=== PATIENT | male | born 1985 | race Hispanic/Latino ===

== ENCOUNTER 2022-11-06 03:59 | Emergency (ER) | payer OTHER, SELFPAY ==
--- NOTE | ~2022-11-06 | XR_ITS ---
Clinical Indication: Left-sided rib pain AP and lateral views of the chest: Comparison: None Findings: The lungs are clear, without evidence of focal consolidation or pleural effusion. Cardiome diastinal silhouette is within normal limits. Multiple bone islands noted the proximal humeri. Impression: Clear lungs. Multiple bone islands at the proximal humeri. Osteopoikilosis is a consideration. Reviewed, dictated and finalized at location . Impression: Clear lungs. Multiple bone islands at the proximal humeri. Osteopoikilosis is a consideratio n.
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
--- NOTE | ~2022-11-06 | XR_ITS ---
Left ankle Technique: AP, oblique, and lateral views were obtained. Clinical History: Swelling Findings: No acute fracture or dislocation is seen. Several probable bone islands noted. Osseous alig nment is anatomic. Ankle mortise and other visualized joint spaces are preserved. Soft tissues are o therwise unremarkable. Impression: No significant abnormality identified. Reviewed, dictated and finalized at location . Impression: No significant abnormality identified.
--- NOTE | ~2022-11-06 | CT_ITS ---
Noncontrast CT scan of the cervical spine Technique: Multiple contiguous axial [address] images of the cervical spine were obtained and rec onstructed in 2D sagittal and coronal planes on the acquisition scanner. Dose reduction technique was used on this scan by utilizing automated exposure control, adjustment of the mA and/or kV according to patient size. The dose-length product (DLP) was 386.61 mGy-cm. Clinical History: Pain Findings: No fractures or dislocations. Unremarkable visualized bony structures. The intervertebral disc spaces are preserved. No prevertebral soft tissue swelling. Impression: No fracture or subluxation of the cervical spine. Reviewed, dictated and finalized at location . Impression: No fracture or subluxation of the cervical spine.
[2022-11-06 04:06] VITALS: BP 140/100; PULSE 72; RESP 20; O2SAT 98
[2022-11-06 04:17] VITALS: BP 141/108; PULSE 66; RESP 20; TEMP 36.6; O2SAT 99
[2022-11-06] MEDS: oxyCODONE HCL (*CRX) 5 MG TAB IR PO (05:56)
[2022-11-06] MEDS: ACETAMINOPHEN 500 MG TABLET 1000 MG PO (05:56)
[2022-11-06 06:00] VITALS: BP 129/92; PULSE 73; RESP 15; O2SAT 99
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
[2022-11-06 08:15] VITALS: TEMP 36.8
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
== END 2022-11-06 08:15 | disposition home or self-care (01) ==
PROVIDERS: Emergency Provider Emergency Medicine
DX: S20.212A Contusion of left front wall of thorax, initial encounter (principal); E11.9 Type 2 diabetes mellitus without complications; B20 Human immunodeficiency virus [HIV] disease; V74.6XXA Passenger on bus injured in collision with heavy transport vehicle or bus in traffic accident, initial encounter
CPT/HCPCS: 70450; 71046; 72125; 73610; 99284; A9270